=== PATIENT | male | born 2000 | race Caucasian/White ===

== ENCOUNTER 2022-03-04 05:10 | Emergency (ER) | payer OTHER ==
[2022-03-04 08:26] LABS: HEMOGLOBIN 15.5 gm/dl (14.0-17.5)
[2022-03-04 08:54] LABS: BUN/CREATININE RATIO 18 (0-10)
== END 2022-03-04 10:40 | disposition home or self-care (01) ==
LOC: ER1 05:10
PROVIDERS: Nurse Practitioner
DX: F32.A Depression, unspecified (principal); F17.290 Nicotine dependence, other tobacco product, uncomplicated; Z20.822 Contact with and (suspected) exposure to COVID-19
CPT/HCPCS: 0240U; 80053; 80307; 81001; 83735; 85025; 87086; 93005; 99284; G0480

== ENCOUNTER → 2022-03-16 | Outpatient (CLI) | payer OTHER | LOC: RAD 11:35 | DX: Z11.1 Encounter for screening for respiratory tuberculosis (principal) | CPT/HCPCS: 71046 ==